=== PATIENT | male | born 1995 | race Caucasian/White ===

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

== ENCOUNTER 2023-11-29 21:22 | Emergency (ER) | payer SELFPAY ==
[~2023-11-29] VITALS: Ht 175.3 cm; Wt 75.0 kg
[2023-11-29 21:55] VITALS: TEMP 98; O2SAT 99
[2023-11-29] MEDS ORDERED: IBUP-2029 MT (23:22)
[2023-11-29] MEDS ORDERED: LIDO1ADH7 TP (23:22)
[2023-11-29] MEDS ORDERED: CYCL5TAB MT (23:22)
[2023-11-29 23:30] VITALS: BP 126/73; PULSE 86; RESP 16
[2023-11-29] MEDS: KETOROLAC 30MG/ML VIAL IV ONE (23:30)
== END 2023-11-30 00:49 | disposition home or self-care (01) ==
LOC: ER 21:22
DX: M54.50 Low back pain, unspecified (principal)
CPT/HCPCS: 99283; 96374; J1885